=== PATIENT | male | born 1960 | race Caucasian/White ===

== ENCOUNTER 2017-10-28 21:02 | Inpatient (IN) | payer OTHER ==
[2017-10-28] MEDS ORDERED: FUROSEMIDE 100 MG/10 ML VIAL. (21:35)
[2017-10-28] MEDS ORDERED: NITROGLYCERIN PREMIX 250 ML IV (21:35)
[2017-10-28] MEDS: FUROSEMIDE 20 MG/2 ML VIAL. IV (21:40)
[2017-10-28] MEDS: NITROGLYCERIN PREMIX 250 ML IV (21:40)
[2017-10-28 21:48] LABS: BASO % 0 % (0-3); EOS # 0.3 x10^3/uL (0.0-0.7); EOS % 4 % (0-3); HEMOGLOBIN 9.4 g/dL (13.0-17.5); LYMPH # 1.5 x10^3/uL (1.0-4.8); LYMPH % 20 % (24-48); MEAN CORPUSCULAR HEMOGLOBIN 34 pg (25-35); MEAN CORPUSCULAR HGB CONC 34 g/dL (31-37); MEAN CORPUSCULAR VOLUME 100 fL (79-100); MONO # 2.2 x10^3/uL (0.0-1.1); MONO % 28 % (0-9); NEUT # 3.7 x10^3uL (1.8-7.7); NEUT % 48 % (31-73); PLATELET COUNT 98 x10^3/uL (140-400); RED BLOOD COUNT 2.79 x10^6/uL (4.30-5.70); RED CELL DISTRIBUTION WIDTH 18.9 % (11.5-14.5); WHITE BLOOD COUNT 7.7 x10^3/uL (4.0-11.0)
[2017-10-28 21:51] LABS: ADD MAN DIFF? YES; BASE EXCESS ABG 7 mmol/L (-3-3); HCO3 ABG 33 mmol/L (21-28); PCO2 ABG 57 mmHg (35-46); PH ABG 7.38 (7.35-7.45); PO2 ABG 82 mmHg (75-108); SAT O2 ABG 95 % (92-99)
[2017-10-28] MEDS: IPRATRPIUM/ALBUTEROL 0.5/2.5MG 3 ML NEBU. NEB (21:53)
[2017-10-28 21:55] LABS: AGAP ISTAT 17 mmol/L (6-14); BUN ISTAT 40 mg/dL (8-26); CHLORIDE ISTAT 83 mmol/L (98-110); CREATININE ISTAT 0.9 mg/dL (0.5-1.4); GLUCOSE ISTAT 136 mg/dL (70-99); HEMATOCRIT ISTAT 29 % (37-52); HEMOGLOBIN ISTAT 9.9 g/dL (14-18); ION CA ISTAT 1.11 mmol/L (1.13-1.32); POTASSIUM ISTAT 4.2 mmol/L (3.5-5.0); SODIUM ISTAT 128 mmol/L (135-145); TOT CO2 ISTAT 34 mmol/L (23-32)
[2017-10-28 21:57] LABS: INR 2.9 (0.8-1.1); PROTHROMBIN TIME PATIENT 29.9 SEC (11.7-14.0)
[2017-10-28 21:59] LABS: ANION GAP 4 (6-14); BLOOD UREA NITROGEN 46 mg/dL (8-26); BUN/CREATININE RATIO 46 (6-20); CALCIUM 8.3 mg/dL (8.5-10.1); CARBON DIOXIDE 34 mmol/L (21-32); CHLORIDE 89 mmol/L (98-107); GFR 77.3; GLUCOSE 143 mg/dL (70-99); POTASSIUM 4.3 mmol/L (3.5-5.1); SODIUM 127 mmol/L (136-145)
[2017-10-28] MEDS: ESMOLOL 2500MG/250ML PREMIX 250 ML IV (22:01)
[2017-10-28 22:07] LABS: ALBUMIN 2.7 g/dL (3.4-5.0); ALBUMIN/GLOBULIN RATIO 0.7 (1.0-1.7); ALK PHOS 125 U/L (46-116); ALT (SGPT) 78 U/L (16-63); AST (SGOT) 79 U/L (15-37); LIPASE 83 U/L (73-393); MAGNESIUM 2.4 mg/dL (1.8-2.4); TOTAL BILIRUBIN 4.7 mg/dL (0.2-1.0); TOTAL PROTEIN 6.4 g/dL (6.4-8.2)
[2017-10-28] MEDS: MORPHINE SULFATE 2 MG/ML DISP.SYRIN. IV (22:09)
[2017-10-28] MEDS: DIGOXIN IV 500 MCG/2 ML AMPUL. IV (22:10)
[2017-10-28 22:14] LABS: CKMB INDEX 3.1 % (0-4); CKMB MASS 3.6 ng/mL (0.0-3.6); CREATINE KINASE 118 U/L (39-308)
[2017-10-28 22:14] LABS: NT-PRO BNP 2706 pg/mL (0-124)
[2017-10-28 22:15] LABS: TROPONINI 0.061 ng/mL (0.000-0.055)
[2017-10-28 22:21] LABS: BILIRUBIN,URINE SMALL (NEG); GLUCOSE,URINE NEGATIVE (NEG); NITRITE,URINE NEGATIVE (NEG); PH,URINE 5.5; PROTEIN,URINE NEGATIVE (NEG-TRACE)
[2017-10-28 22:23] LABS: % BANDS 3 % (0-9); % BASOS 2 % (0-3); % EOS 6 % (0-5); % LYMPHS 33 % (24-48); % MONOS 21 % (0-10); % SEGS 35 % (35-66)
[2017-10-28 22:24] LABS: ANISOCYTOSIS SLIGHT; PLT ESTIMATE DECREASED (ADEQUATE); POLYCHROMASIA SLIGHT
[2017-10-28 22:30] LABS: TROPONIN BY ISTAT 0.04 ng/ml (<0.08)
[2017-10-28 22:30] LABS: CLARITY,URINE HAZY; COLOR,URINE DK YELLOW
[2017-10-28 22:32] LABS: BACTERIA,URINE 0 /HPF (0-FEW); HYALINE CASTS, URINE MANY /HPF; RBC,URINE RARE /HPF (0-2); WBC,URINE OCC /HPF (0-4)
[2017-10-28 22:36] LABS: FIO2 ABG 40
[2017-10-29 02:16] LABS: TROPONINI 0.056 ng/mL (0.000-0.055)
[2017-10-29] MEDS ORDERED: ESMOLOL 2500MG/250ML PREMIX 250 ML IV (03:00)
[2017-10-29 03:18] LABS: LACTIC ACID 3.5 mmol/L (0.4-2.0)
[2017-10-29] MEDS: VANCOMYCIN 1 GM in IV DEXTROSE 5 %-0.2 % NACL 250 ML IV (03:46)
[2017-10-29] MEDS: PIPERACILLIN/TAZOBACTAM 3.375 GM in IV NORMAL SALINE 50ML 50 ML IV ×4 (03:46→17:02)
[2017-10-29 05:45] LABS: ADD MAN DIFF? NO
[2017-10-29 05:58] LABS: BASO % 0 % (0-3); EOS # 0.1 x10^3/uL (0.0-0.7); EOS % 2 % (0-3); HEMATOCRIT 22.9 % (39.0-53.0); HEMOGLOBIN 7.6 g/dL (13.0-17.5); LYMPH # 1.4 x10^3/uL (1.0-4.8); LYMPH % 21 % (24-48); MEAN CORPUSCULAR HEMOGLOBIN 33 pg (25-35); MEAN CORPUSCULAR HGB CONC 33 g/dL (31-37); MEAN CORPUSCULAR VOLUME 100 fL (79-100); MONO # 1.5 x10^3/uL (0.0-1.1); MONO % 23 % (0-9); NEUT # 3.6 x10^3uL (1.8-7.7); NEUT % 54 % (31-73); PLATELET COUNT 73 x10^3/uL (140-400); RED BLOOD COUNT 2.29 x10^6/uL (4.30-5.70); RED CELL DISTRIBUTION WIDTH 18.8 % (11.5-14.5); WHITE BLOOD COUNT 6.7 x10^3/uL (4.0-11.0)
[2017-10-29 06:15] LABS: ALBUMIN 2.2 g/dL (3.4-5.0); ALBUMIN/GLOBULIN RATIO 0.7 (1.0-1.7); ALK PHOS 106 U/L (46-116); ALT (SGPT) 65 U/L (16-63); ANION GAP 2 (6-14); AST (SGOT) 68 U/L (15-37); BLOOD UREA NITROGEN 49 mg/dL (8-26); BUN/CREATININE RATIO 49 (6-20); CALCIUM 7.8 mg/dL (8.5-10.1); CARBON DIOXIDE 34 mmol/L (21-32); CHLORIDE 91 mmol/L (98-107); GFR 77.3; GLUCOSE 143 mg/dL (70-99); POTASSIUM 4.4 mmol/L (3.5-5.1); SODIUM 127 mmol/L (136-145); TOTAL BILIRUBIN 4.6 mg/dL (0.2-1.0); TOTAL PROTEIN 5.3 g/dL (6.4-8.2)
[2017-10-29 06:20] LABS: TROPONINI 0.067 ng/mL (0.000-0.055)
[2017-10-29 08:16] LABS: AMMONIA 25 mcmol/L (11-34)
[2017-10-29 08:25] LABS: LACTIC ACID 2.7 mmol/L (0.4-2.0)
[2017-10-29 08:26] LABS: PROCALCITONIN 0.41 ng/mL (0.00-0.10)
[2017-10-29] MEDS ORDERED: LORazepam INTENSOL 2 MG/ML ORAL.CONC PO (11:00)
[2017-10-29] MEDS ORDERED: NON FORMULARY ITEM (Albuterol Sulfate (Proair Respiclick) 1 PUFF) IH (11:00)
[2017-10-29] MEDS ORDERED: ALBUTEROL SULFATE 2.5 MG/3 ML NEBU. NEB (11:00)
[2017-10-29] MEDS ORDERED: BISACODYL 10 MG SUPP.RECT. RC (11:00)
[2017-10-29] MEDS ORDERED: LACTULOSE 20 GM/30 ML SOLUTION. PO (11:15)
[2017-10-29] MEDS: SPIRONOLACTONE 25 MG TABLET PO (11:30)
[2017-10-29] MEDS: METOPROLOL TART IMMED RELEASE 25 MG TABLET. PO ×2 (11:30→21:00)
[2017-10-29] MEDS: FUROSEMIDE 40 MG TABLET. PO (11:30)
[2017-10-29] MEDS: ASPIRIN CHEWABLE 81 MG TABLET. PO (11:30)
[2017-10-29] MEDS: BUDESONIDE 0.5 MG/2 ML NEBU. NEB ×2 (12:03→19:33)
[2017-10-29] MEDS: ALBUTEROL SULFATE 2.5 MG/3 ML NEBU. NEB ×3 (12:03→19:33)
[2017-10-29] MEDS: FUROSEMIDE 40 MG/4 ML VIAL. IVP (13:27)
[2017-10-29] MEDS: PANTOPRAZOLE 40 MG TABLET.DR. PO ×2 (13:28→17:03)
[2017-10-29 14:22] LABS: HEMATOCRIT 22.3 % (39.0-53.0); HEMOGLOBIN 7.5 g/dL (13.0-17.5); MEAN CORPUSCULAR HGB CONC 34 g/dL (31-37)
[2017-10-29] MEDS: NOREPINEPHRIN 8MG/250ML PREMIX 250 ML IV (14:54)
[2017-10-29] MEDS: MORPHINE SULFATE 20 MG/ML CONC SOLUTION. SL (17:02)
[2017-10-29] MEDS: DIGOXIN IV 500 MCG/2 ML AMPUL. IV (17:12)
[2017-10-29] MEDS: IV NORMAL SALINE 500ML BAG 500 ML IV ×2 (18:16→18:30)
[2017-10-29 22:20] LABS: MRSA BY PCR Positive (Negative)
[2017-10-30] MEDS: PIPERACILLIN/TAZOBACTAM 3.375 GM in IV NORMAL SALINE 50ML 50 ML IV ×4 (00:17→18:34)
[2017-10-30] MEDS: NOREPINEPHRIN 8MG/250ML PREMIX 250 ML IV ×2 (04:08→19:46)
[2017-10-30 05:34] LABS: ADD MAN DIFF? NO
[2017-10-30 05:47] LABS: BASO % 0 % (0-3); EOS # 0.3 x10^3/uL (0.0-0.7); EOS % 3 % (0-3); HEMATOCRIT 24.6 % (39.0-53.0); HEMOGLOBIN 8.3 g/dL (13.0-17.5); LYMPH # 1.8 x10^3/uL (1.0-4.8); LYMPH % 17 % (24-48); MEAN CORPUSCULAR HEMOGLOBIN 34 pg (25-35); MEAN CORPUSCULAR HGB CONC 34 g/dL (31-37); MEAN CORPUSCULAR VOLUME 100 fL (79-100); MONO # 2.4 x10^3/uL (0.0-1.1); MONO % 22 % (0-9); NEUT # 6.4 x10^3uL (1.8-7.7); NEUT % 58 % (31-73); PLATELET COUNT 110 x10^3/uL (140-400); RED BLOOD COUNT 2.45 x10^6/uL (4.30-5.70); RED CELL DISTRIBUTION WIDTH 18.7 % (11.5-14.5)
[2017-10-30 06:18] LABS: LACTIC ACID 2.3 mmol/L (0.4-2.0)
[2017-10-30 06:21] LABS: ALBUMIN 2.4 g/dL (3.4-5.0); ALBUMIN/GLOBULIN RATIO 0.7 (1.0-1.7); ALK PHOS 103 U/L (46-116); ALT (SGPT) 71 U/L (16-63); AST (SGOT) 73 U/L (15-37); BLOOD UREA NITROGEN 47 mg/dL (8-26); BUN/CREATININE RATIO 39 (6-20); CALCIUM 7.8 mg/dL (8.5-10.1); CARBON DIOXIDE 36 mmol/L (21-32); CHLORIDE 92 mmol/L (98-107); CREATININE 1.2 mg/dL (0.7-1.3); GFR 62.6; GLUCOSE 113 mg/dL (70-99); POTASSIUM 4.6 mmol/L (3.5-5.1); SODIUM 127 mmol/L (136-145); TOTAL BILIRUBIN 6.2 mg/dL (0.2-1.0); TOTAL PROTEIN 5.7 g/dL (6.4-8.2)
[2017-10-30] MEDS: ALBUTEROL SULFATE 2.5 MG/3 ML NEBU. NEB ×4 (08:16→19:49)
[2017-10-30] MEDS: BUDESONIDE 0.5 MG/2 ML NEBU. NEB ×2 (08:16→16:07)
[2017-10-30] MEDS: METOPROLOL TART IMMED RELEASE 25 MG TABLET. PO ×2 (09:00→21:41)
[2017-10-30] MEDS: ASPIRIN CHEWABLE 81 MG TABLET. PO (09:00)
[2017-10-30] MEDS: PANTOPRAZOLE 40 MG TABLET.DR. PO (09:21)
[2017-10-30] MEDS: FUROSEMIDE 40 MG/4 ML VIAL. IVP ×2 (09:21→13:28)
[2017-10-30] MEDS: SPIRONOLACTONE 25 MG TABLET PO (09:21)
[2017-10-30] MEDS: DIGOXIN IV 500 MCG/2 ML AMPUL. IV (11:02)
[2017-10-30] MEDS: PANTOPRAZOLE IV PUSH 40 MG VIAL. IVP (21:40)
[2017-10-30] MEDS: LACTOBACILLUS RHAMNOSUS GG 1 CAPSULE. PO (21:40)
[2017-10-30] MEDS: MORPHINE SULFATE 20 MG/ML CONC SOLUTION. SL (22:25)
[2017-10-31] MEDS: PIPERACILLIN/TAZOBACTAM 3.375 GM in IV NORMAL SALINE 50ML 50 ML IV ×4 (00:40→18:37)
[2017-10-31] MEDS: MORPHINE SULFATE 20 MG/ML CONC SOLUTION. SL ×2 (04:37→09:22)
[2017-10-31 05:52] LABS: ADD MAN DIFF? NO
[2017-10-31 05:58] LABS: BASO # 0.1 x10^3/uL (0.0-0.2); BASO % 1 % (0-3); EOS # 0.4 x10^3/uL (0.0-0.7); EOS % 4 % (0-3); HEMATOCRIT 21.5 % (39.0-53.0); HEMOGLOBIN 7.4 g/dL (13.0-17.5); LYMPH # 1.3 x10^3/uL (1.0-4.8); LYMPH % 15 % (24-48); MEAN CORPUSCULAR HEMOGLOBIN 34 pg (25-35); MEAN CORPUSCULAR HGB CONC 35 g/dL (31-37); MEAN CORPUSCULAR VOLUME 99 fL (79-100); MONO # 1.5 x10^3/uL (0.0-1.1); MONO % 18 % (0-9); NEUT # 5.2 x10^3uL (1.8-7.7); NEUT % 62 % (31-73); PLATELET COUNT 73 x10^3/uL (140-400); RED BLOOD COUNT 2.18 x10^6/uL (4.30-5.70); RED CELL DISTRIBUTION WIDTH 18.7 % (11.5-14.5); WHITE BLOOD COUNT 8.5 x10^3/uL (4.0-11.0)
[2017-10-31 06:25] LABS: ANION GAP 1 (6-14); BLOOD UREA NITROGEN 46 mg/dL (8-26); CALCIUM 7.7 mg/dL (8.5-10.1); CARBON DIOXIDE 35 mmol/L (21-32); CHLORIDE 94 mmol/L (98-107); CREATININE 1.1 mg/dL (0.7-1.3); GFR 69.2; GLUCOSE 126 mg/dL (70-99); SODIUM 130 mmol/L (136-145)
[2017-10-31] MEDS ORDERED: CETIRIZINE HCL 10 MG TABLET. PO (07:30)
[2017-10-31] MEDS: ALBUTEROL SULFATE 2.5 MG/3 ML NEBU. NEB ×4 (07:55→20:36)
[2017-10-31] MEDS: BUDESONIDE 0.5 MG/2 ML NEBU. NEB ×2 (07:55→20:36)
[2017-10-31] MEDS: METOPROLOL TART IMMED RELEASE 25 MG TABLET. PO ×2 (09:00→20:53)
[2017-10-31] MEDS: FUROSEMIDE 40 MG/4 ML VIAL. IVP ×2 (09:22→14:00)
[2017-10-31] MEDS: ASPIRIN CHEWABLE 81 MG TABLET. PO (09:23)
[2017-10-31] MEDS: PANTOPRAZOLE IV PUSH 40 MG VIAL. IVP (09:23)
[2017-10-31] MEDS: LACTOBACILLUS RHAMNOSUS GG 1 CAPSULE. PO ×2 (09:23→20:53)
[2017-10-31] MEDS: SPIRONOLACTONE 25 MG TABLET PO (09:24)
[2017-10-31] MEDS: NOREPINEPHRIN 8MG/250ML PREMIX 250 ML IV (12:22)
[2017-10-31] MEDS: PANTOPRAZOLE 40 MG TABLET.DR. PO (18:37)
[2017-11-01] MEDS: PIPERACILLIN/TAZOBACTAM 3.375 GM in IV NORMAL SALINE 50ML 50 ML IV ×3 (00:24→15:26)
[2017-11-01] MEDS: MORPHINE SULFATE 20 MG/ML CONC SOLUTION. SL ×2 (02:35→09:58)
[2017-11-01] MEDS: NOREPINEPHRIN 8MG/250ML PREMIX 250 ML IV ×2 (03:26→15:27)
[2017-11-01] MEDS ORDERED: ALBUTEROL SULFATE 2.5 MG/3 ML NEBU. NEB (07:05)
[2017-11-01] MEDS: ALBUTEROL SULFATE 2.5 MG/3 ML NEBU. NEB ×4 (08:11→19:53)
[2017-11-01] MEDS: BUDESONIDE 0.5 MG/2 ML NEBU. NEB ×2 (08:11→19:53)
[2017-11-01] MEDS: METOPROLOL TART IMMED RELEASE 25 MG TABLET. PO (09:00)
[2017-11-01] MEDS: ASPIRIN CHEWABLE 81 MG TABLET. PO (10:01)
[2017-11-01] MEDS: PANTOPRAZOLE 40 MG TABLET.DR. PO ×2 (10:01→16:30)
[2017-11-01] MEDS: SPIRONOLACTONE 25 MG TABLET PO (10:01)
[2017-11-01] MEDS: LACTOBACILLUS RHAMNOSUS GG 1 CAPSULE. PO (10:01)
[2017-11-01] MEDS: FUROSEMIDE 40 MG/4 ML VIAL. IVP ×2 (10:02→15:26)
[2017-11-02] MEDS: MORPHINE SULFATE 20 MG/ML CONC SOLUTION. SL ×2 (03:44→16:18)
[2017-11-02] MEDS: MORPHINE SULFATE 4 MG/ML DISP.SYRIN. IV (10:27)
[2017-11-03] MEDS: MORPHINE SULFATE 4 MG/ML DISP.SYRIN. IV (08:26)
[2017-11-03] MEDS: SCOPOLAMINE 1.5MG PATCH. TD (11:25)
== END 2017-11-03 17:15 | disposition expired | DRG 871 ==
LOC: 5 SOUTH 11-01 21:49 → ER 21:02 → 1 WEST ICU 23:00
PROC: 02HV33Z Insertion of Infusion Device into Superior Vena Cava, Percutaneous Approach (ICD-10-PCS; principal; 2017-10-28)
PROC: 5A09357 Assistance with Respiratory Ventilation, Less than 24 Consecutive Hours, Continuous Positive Airway Pressure (ICD-10-PCS; 2017-10-28)
PROC: 5A09357 Assistance with Respiratory Ventilation, Less than 24 Consecutive Hours, Continuous Positive Airway Pressure (ICD-10-PCS; 2017-10-29)
DX: A41.9 Sepsis, unspecified organism (principal); G92 Toxic encephalopathy; I50.43 Acute on chronic combined systolic (congestive) and diastolic (congestive) heart failure; J96.21 Acute and chronic respiratory failure with hypoxia; I21.A1 Myocardial infarction type 2; D68.9 Coagulation defect, unspecified; E87.1 Hypo-osmolality and hyponatremia; J98.11 Atelectasis; K76.6 Portal hypertension; R18.8 Other ascites; I48.92 Unspecified atrial flutter; B19.20 Unspecified viral hepatitis C without hepatic coma; D53.9 Nutritional anemia, unspecified; D69.6 Thrombocytopenia, unspecified; E88.01 Alpha-1-antitrypsin deficiency; R65.20 Severe sepsis without septic shock; Z51.5 Encounter for palliative care; Z66 Do not resuscitate; R16.2 Hepatomegaly with splenomegaly, not elsewhere classified; F17.200 Nicotine dependence, unspecified, uncomplicated; I48.0 Paroxysmal atrial fibrillation; J44.9 Chronic obstructive pulmonary disease, unspecified; K21.9 Gastro-esophageal reflux disease without esophagitis; K72.90 Hepatic failure, unspecified without coma; K74.60 Unspecified cirrhosis of liver; K76.0 Fatty (change of) liver, not elsewhere classified; K80.20 Calculus of gallbladder without cholecystitis without obstruction; K82.8 Other specified diseases of gallbladder; Z87.440 Personal history of urinary (tract) infections; Z82.49 Family history of ischemic heart disease and other diseases of the circulatory system; Z85.820 Personal history of malignant melanoma of skin; Z86.14 Personal history of Methicillin resistant Staphylococcus aureus infection; Z87.01 Personal history of pneumonia (recurrent); Z91.19 Patient's noncompliance with other medical treatment and regimen; Z79.899 Other long term (current) drug therapy
CPT/HCPCS: 36415; 36556; 36600; 71045; 76705; 80047; 80048; 80053; 81001; 82140; 82553; 82805; 83605; 83690; 83735; 83880; 84145; 84484; 85007; 85014; 85018; 85025; 85610; 87040; 87086; 87641; 92526-GN; 92610-GN; 93005; 93970; 94640; 94660; 94760; 96365; 96368; 96375; 99291-25; C9113; J1160; J1940; J2020; J2060; J2270; J2543; J3370; J3490; J7040; J7613; J7620; J7626